=== PATIENT | female | born 1965 | race Caucasian/White ===

== ENCOUNTER 2019-06-15 11:45 | Emergency (ER) | payer SELFPAY ==
[~2019-06-15] VITALS: Ht 170.2 cm; Wt 68.0 kg
[2019-06-15 11:55] VITALS: BP 168/93
[2019-06-15] MEDS ORDERED: HYDROcodone/APAP 5/325MG 1 TAB TABLET PO ONE (12:30)
--- NOTE | 2019-06-15 12:39 | RAD ---
EXAM: Chest and left ribs, 3 views. HISTORY: Fall. COMPARISON: None. FINDINGS: A frontal view of the chest and 2 views left ribs are obtained. There is no infiltrate, pleural effusion or pneumothorax. The heart is normal in size. No displaced rib fracture is seen. There is mild lumbar scoliosis and degenerative change involving the mid lumbar levels. IMPRESSION: No acute pulmonary or osseous finding. Electronically signed by: Nena Reyes MD (06/15/2019 12:36 PM) [facility]
[2019-06-15] MEDS ORDERED: HYDR-2761 PO (12:51)
--- NOTE | 2019-06-15 12:52 | PHYS DOC ---
Past Medical History Past Medical History: COPD Past Surgical History: Other Additional Past Surgical Histo: Left ankle Additional Information: 1 PPD Since 1975 Alcohol Use: Occasionally Drug Use: Marijuana Adult General Chief Complaint Chief Complaint: RIB PAIN HPI HPI Patient is a 53 year old female, accompanied by her , who presents to the ER with complaints of left lower posterior rib pain and bruising after falling this morning at 0100. PT states she was in the bathroom when the rug slipped out under her and caused her to fall. She hit the left side of her body on the bathtub. She denies any head injury, neck pain, back pain, nausea, vomiting, or LOC. Pt states it hurts to take a deep breath, she denies shortness of breath or hemoptysis. Currently, her pain is a 5/10 on the pain scale. She took 3 naproxen at home prior to arrival for pain. Review of Systems Review of Systems Constitutional: Denies fever or chills [] Eyes: Denies change in visual acuity, redness, or eye pain [] HENT: Denies nasal congestion or sore throat [] Respiratory: Denies cough or shortness of breath; see hPI [] Cardiovascular: No additional information not addressed in HPI [] GI: Denies abdominal pain, nausea, vomiting, or diarrhea [] : Denies dysuria or hematuria [] Musculoskeletal: see HPI Integument: Denies rash; see HPI Neurologic: Denies headache Complete systems were reviewed and found to be within normal limits, except as documented in this note. Current Medications Current Medications Current Medications Medications (Trade) Dose Ordered Sig/Nav Start Time Stop Time Status Last Admin Dose Admin Acetaminophen/ Hydrocodone Bitart (Lortab 5/325) 1 tab 1X ONCE 06/15/19 12:30 06/15/19 12:31 DC 06/15/19 12:35 1 TAB Allergies Allergies Allergies Coded Allergies Type Severity Reaction Last Updated Verified No Known Drug Allergies 06/15/19 No Physical Exam Physical Exam Constitutional: Well developed, well nourished, no acute distress, non-toxic appearance. [] HENT: Normocephalic, atraumatic, bilateral external ears normal, oropharynx moist, no oral exudates, nose normal. [] Eyes: PERRLA, EOMI, conjunctiva normal, no discharge. [] Neck: Normal range of motion, no tenderness, supple, no stridor. [] Cardiovascular:Heart rate regular rhythm, no murmur [] Lungs & Thorax: Bilateral breath sounds clear to auscultation; left posterior ribs TTP, no crepitus, bruising noted to lateral lower ribs [] Skin: Warm, dry, no erythema, no rash. [] Back: no cervical, thoracic, or lumbar tenderness to palpation Extremities: No cyanosis, no clubbing, ROM intact, no edema. [] Neurologic: Alert and oriented X 3, no focal deficits noted. [] Psychologic: Affect normal, judgement normal, mood normal. [] Current Patient Data Vital Signs Vital Signs Date Time Temp Pulse Resp B/P (MAP) Pulse Ox O2 Delivery O2 Flow Rate FiO2 06/15/19 12:35 16 97 06/15/19 11:55 98.3 82 168/93 (118) Room Air 98.3 EKG EKG [] Radiology/Procedures Radiology/Procedures PROCEDURE: VENOUS LOWER EXT BILATERAL EXAM: Bilateral lower extremity venous Doppler sonogram. HISTORY: Pain and swelling. TECHNIQUE: Chatterjee scale and color Doppler sonographic evaluation of the bilateral lower extremity veins with spectral waveform analysis was performed. FINDINGS: There is normal color flow, normal compressibility and there are normal spectral waveforms in the common femoral, superficial femoral, and popliteal veins. The calf veins are not well seen due to patient body habitus and soft tissue edema. IMPRESSION: No Doppler evidence of lower extremity deep venous thrombosis, with limited evaluation of the calf veins due to body habitus and soft tissue edema. [] Course & Med Decision Making Course & Med Decision Making Pertinent Labs and Imaging studies reviewed. (See chart for details) [] Dragon Disclaimer Dragon Disclaimer This electronic medical record was generated, in whole or in part, using a voice recognition dictation system. Departure Departure Impression: Primary Impression: Contusion of rib on left side Disposition: HOME, SELF-CARE Condition: STABLE Patient Instructions: Rib Contusion Additional Instructions: Fill prescription and use as directed. Apply ice to sore areas for 10-15 minutes every hour today while awake then as needed. Take 2 deep breaths and cough while holding a pillow every hour. Follow up with your primary care doctor next week, return the ER if symptoms worsen. Scripts Hydrocodone Bit/Acetaminophen (HYDROCODONE-APAP 5-325 ) 1 Tab Tablet 1 TAB PO PRN Q6HRS PRN for PAIN for 3 Days, #10 TAB 0 Refills Prov: BRAYDON VILLEGAS COTTON FACTOR 06/15/19 Problem Qualifiers Primary Impression: Contusion of rib on left side Encounter type: initial encounter Qualified Codes: S20.212A - Contusion of left front wall of thorax, initial encounter BRAYDON VILLEGAS COTTON FACTOR Jun 15, 2019 12:52
== END 2019-06-15 12:54 | disposition home or self-care (01) ==
LOC: ER 11:45
DX: S20.212A Contusion of left front wall of thorax, initial encounter (principal); J44.9 Chronic obstructive pulmonary disease, unspecified; F17.200 Nicotine dependence, unspecified, uncomplicated; W18.09XA Striking against other object with subsequent fall, initial encounter; Y93.89 Activity, other specified; Y92.002 Bathroom of unspecified non-institutional (private) residence as the place of occurrence of the external cause; Y99.8 Other external cause status
CPT/HCPCS: 71101; 99284

== ENCOUNTER 2020-05-26 08:25 | Emergency (ER) | payer SELFPAY ==
[~2020-05-26] VITALS: Ht 162.6 cm; Wt 68.0 kg
[~2020-05-26 08:25] MED LIST: HYDR-2761 PO
--- NOTE | 2020-05-26 09:09 | PHYS DOC ---
Past Medical History Past Medical History: COPD, Hypertension Past Surgical History: Other Additional Past Surgical Histo: Left ankle Smoking Status: Current Every Day Smoker Alcohol Use: None Drug Use: Marijuana General Adult EDM: Chief Complaint: FEVER HPI: HPI: Patient is a 54 year old female who presented to ER with fever chills, nausea vomiting, abdominal pain on the right side. Patient says she still having right flank pain a week ago, associate with urinary frequency. Patient was thinking she had a bladder infection so she took some Azo at home but did not get any better. The pain become more severe last night so she came here for evaluation. 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 Patient denies any cough or congestion, no sore throat, no chest pain, no trouble breathing. Review of Systems: Review of Systems: Constitutional: Positive for fever and chill Eyes: Denies change in visual acuity. [] HENT: Denies nasal congestion or sore throat. [] Respiratory: Denies cough or shortness of breath. [] Cardiovascular: Denies chest pain or edema. [] GI: Positive for abdominal pain, associate with nausea and vomiting. : Positive for dysuria Musculoskeletal: Denies back pain or joint pain. [] Integument: Denies rash. [] Neurologic: Denies headache, focal weakness or sensory changes. [] Endocrine: Denies polyuria or polydipsia. [] Lymphatic: Denies swollen glands. [] Psychiatric: Denies depression or anxiety. [] Heart Score: Risk Factors: Risk Factors: DM, Current or recent (<one month) smoker, HTN, HLP, family history of CAD, obesity. Risk Scores: Score 0 - 3: 2.5% MACE over next 6 weeks - Discharge Home Score 4 - 6: 20.3% MACE over next 6 weeks - Admit for Clinical Observation Score 7 - 10: 72.7% MACE over next 6 weeks - Early Invasive Strategies Current Medications: Current Medications Medications (Trade) Dose Ordered Sig/Nav Start Time Stop Time Status Last Admin Dose Admin Ketorolac Tromethamine (Toradol 30mg Vial) 30 mg 1X ONCE 05/26/20 09:30 05/26/20 09:31 Ondansetron HCl (Zofran) 4 mg 1X ONCE 05/26/20 09:30 05/26/20 09:31 Sodium Chloride 1,000 ml @ 1,000 mls/hr 1X ONCE 05/26/20 09:30 05/26/20 10:29 Allergies: Allergies: Allergies Coded Allergies Type Severity Reaction Last Updated Verified No Known Drug Allergies 06/15/19 No Physical Exam: PE: Constitutional: Well developed, well nourished, no acute distress, non-toxic appearance. [] HENT: Normocephalic, atraumatic, bilateral external ears normal, oropharynx moist, no oral exudates, nose normal. [] Eyes: PERRLA, EOMI, conjunctiva normal, no discharge. [] Neck: Normal range of motion, no tenderness, supple, no stridor. [] Cardiovascular:Heart rate regular rhythm, no murmur [] Lungs & Thorax: Bilateral breath sounds clear to auscultation [] Abdomen: Bowel sounds normal, soft, there is tenderness to palpation of the right lower quadrant abdominal area, no rebound, no guarding., no masses, no pulsatile masses. [] Skin: Warm, dry, no erythema, no rash. [] Back: No tenderness, positive for right CVA tenderness to palpation Extremities: No tenderness, no cyanosis, no clubbing, ROM intact, no edema. [] Neurologic: Alert and oriented X 3, normal motor function, normal sensory function, no focal deficits noted. [] Psychologic: Affect normal, judgement normal, mood normal. [] Current Patient Data: Labs: Laboratory Tests Test 05/26/20 08:50 05/26/20 09:39 White Blood Count 10.5 x10^3/uL Red Blood Count 4.02 x10^6/uL Hemoglobin 13.4 g/dL Hematocrit 39.3 % Mean Corpuscular Volume 98 fL Mean Corpuscular Hemoglobin 33 pg Mean Corpuscular Hemoglobin Concent 34 g/dL Red Cell Distribution Width 13.5 % Platelet Count 156 x10^3/uL Neutrophils (%) (Auto) 91 % Lymphocytes (%) (Auto) 2 % Monocytes (%) (Auto) 7 % Eosinophils (%) (Auto) 0 % Basophils (%) (Auto) 0 % Neutrophils # (Auto) 9.5 x10^3/uL Lymphocytes # (Auto) 0.2 x10^3/uL Monocytes # (Auto) 0.7 x10^3/uL Eosinophils # (Auto) 0.0 x10^3/uL Basophils # (Auto) 0.0 x10^3/uL Segmented Neutrophils % 80 % Band Neutrophils % 8 % Lymphocytes % 3 % Monocytes % 8 % Eosinophils % 1 % Toxic Granulation Slight Dohle Bodies Few Platelet Estimate Adequate Prothrombin Time 12.4 SEC Prothromb Time International Ratio 1.0 Activated Partial Thromboplast Time 37 SEC Sodium Level 138 mmol/L Potassium Level 3.8 mmol/L Chloride Level 103 mmol/L Carbon Dioxide Level 25 mmol/L Anion Gap 10 Blood Urea Nitrogen 17 mg/dL Creatinine 1.4 mg/dL Estimated GFR (Cockcroft-Gault) 39.0 BUN/Creatinine Ratio 12 Glucose Level 107 mg/dL Lactic Acid Level 1.2 mmol/L Calcium Level 9.4 mg/dL Total Bilirubin 0.7 mg/dL Aspartate Amino Transf (AST/SGOT) 116 U/L Alanine Aminotransferase (ALT/SGPT) 113 U/L Alkaline Phosphatase 179 U/L Total Protein 7.4 g/dL Albumin 2.9 g/dL Albumin/Globulin Ratio 0.6 Lipase 64 U/L Urine Collection Type Unknown Urine Color Yellow Urine Clarity Clear Urine pH 7.0 Urine Specific Harrison 1.020 Urine Protein >=300 mg/dL Urine Glucose (UA) Negative mg/dL Urine Ketones (Stick) Trace mg/dL Urine Blood Moderate Urine Nitrite Negative Urine Bilirubin Negative Urine Urobilinogen Dipstick 4.0 mg/dL Urine Leukocyte Esterase Small Urine RBC 3-5 /HPF Urine WBC 20-40 /HPF Urine Squamous Epithelial Cells Mod /LPF Urine Bacteria Many /HPF Urine Mucus Mod /LPF Current Medications Medications (Trade) Dose Ordered Sig/Nav Route PRN Reason Start Time Stop Time Status Last Admin Dose Admin Sodium Chloride 1,000 ml @ 1,000 mls/hr 1X ONCE IV 05/26/20 09:30 05/26/20 10:29 DC 05/26/20 09:23 Ondansetron HCl (Zofran) 4 mg 1X ONCE IVP 05/26/20 09:30 05/26/20 09:31 DC 05/26/20 09:22 Ketorolac Tromethamine (Toradol 30mg Vial) 30 mg 1X ONCE IVP 05/26/20 09:30 05/26/20 09:31 DC 05/26/20 09:25 Piperacillin Sod/ Tazobactam Sod 3.375 gm/Sodium Chloride 50 ml @ 100 mls/hr 1X ONCE IV 05/26/20 11:00 05/26/20 11:29 DC 05/26/20 10:57 Morphine Sulfate (Morphine Sulfate) 4 mg 1X ONCE IV 05/26/20 11:15 05/26/20 11:16 DC 05/26/20 11:13 Iohexol (Omnipaque 300 Mg/ml) 60 ml 1X ONCE IV 05/26/20 11:15 05/26/20 11:16 DC 05/26/20 11:34 Info (CONTRAST GIVEN -- Rx MONITORING) 1 each PRN DAILY PRN MC SEE COMMENTS 05/26/20 11:30 05/28/20 11:29 Vital Signs: Vital Signs Date Time Temp Pulse Resp B/P (MAP) Pulse Ox O2 Delivery O2 Flow Rate FiO2 05/26/20 08:35 100.1 99 20 169/93 (118) 99 Room Air 100.1 EKG: EKG: [] Radiology/Procedures: Radiology/Procedures: [facility] [address] [place] [address] IMAGING REPORT Signed PATIENT: ANA LUISA VANESSA ACCOUNT: [id number] : 1965 LOCATION: ER AGE: 54 SEX: F EXAM STATUS: REG ER ORD. PHYSICIAN: ROXANA RAMOS DO REASON: right side abdominal pain PROCEDURE: CT ABD PELV W/ IV CONTRST ONLY Examination: CT abdomen pelvis with IV contrast HISTORY: History of right-sided abdominal pain COMPARISON: None available TECHNIQUE: Axial CT images of the abdomen pelvis were performed with IV contrast. Coronal and sagittal images also performed. Exposure: One or more of the following individualized dose reduction techniques were utilized for this examination: 1. Automated exposure control 2. Adjustment of the mA and/or kV according to patient size 3. Use of iterative reconstruction technique FINDINGS: Minimal bibasilar lung atelectasis. No evidence of free air identified in the abdomen. The liver, spleen, adrenals grossly appears unremarkable. The gallbladder is mildly distended. The stomach is mildly distended. The visualized pancreas grossly appears unremarkable. The small bowel is nondilated. Feces and gas noted in the colon. Sigmoid colon diverticulosis. Heterogeneous enhancement of the right kidney with inflammatory fat stranding identified about the right kidney and along the right ureter. Urinary bladder is mildly distended. Mild fat stranding identified about the urinary bladder. Atherosclerotic calcifications identified in the iliac arteries which limits evaluation of the ureters for evaluation of ureteral calculus. Moderate degenerative changes lumbar spine. IMPRESSION: 1. Heterogeneous enhancement of the right kidney with surrounding inflammatory fat stranding about the right kidney and along the right ureter , suspicious for pyelonephritis. There is mild fat stranding identified about the urinary bladder could be secondary to cystitis. Correlate with urine analysis. 2. Sigmoid colon diverticulosis. Electronically signed by: Juan Wang MD (05/26/2020 12:29 PM) [id number] DICTATED and SIGNED BY: JUAN WANG MD DATE: 05/26/20 1226 [facility] [address] [place] [address] IMAGING REPORT Signed PATIENT: ANA LUISA VANESSA ACCOUNT: [id number] : 1965 LOCATION: ER AGE: 54 SEX: F EXAM STATUS: REG ER ORD. PHYSICIAN: ROXANA RAMOS DO REASON: RUQ ABDOMINAL PAIN PROCEDURE: ABDOMEN LTD Examination: Ultrasound abdomen limited HISTORY: History of right upper quadrant abdominal pain COMPARISON: None available. Findings: The liver length measures 16.2 cm. The common bile duct measures 1.7 mm in transverse dimension. The gallbladder wall thickness measures 1.7 mm. The evaluation of the gallbladder is somewhat limited due to bowel gas. The right kidney measures 11.8 cm in length. The pancreas, aorta, IVC are not well-visualized due to bowel gas. IMPRESSION: 1. Limited examination due to bowel gas. 2. Unremarkable visualized exam. Electronically signed by: Juan Wang MD (05/26/2020 10:55 AM) [id number] DICTATED and SIGNED BY: JUAN WANG MD DATE: 05/26/20 1053 Course & Med Decision Making: Course & Med Decision Making Pertinent Labs and Imaging studies reviewed. (See chart for details) Patient is a 54-year-old female who was evaluated in the ER due to right side abdominal pain, work-up included lab and CT scan, ultrasound showed she had acute pyelonephritis. Patient was given IV fluid and antibiotic in the ER, she felt much better. Patient wanted to go home. Patient will be discharged home with levaquin. [place] Disclaimer: Oz Disclaimer: This electronic medical record was generated, in whole or in part, using a voice recognition dictation system. Departure Departure Impression: Primary Impression: Acute pyelonephritis Disposition: HOME, SELF-CARE Condition: IMPROVED Referrals: NO PCP (PCP) FOLLOW UP WITH YOUR FAMILY PHYSICIAN THIS WEEK FOR REEVALUATION Patient Instructions: Pyelonephritis, Adult Additional Instructions: Thank you for visiting our Emergency Department. We appreciate you trusting us with your care. If any additional problems come up don't hesitate to return to visit us. Please follow up with your primary care provider so they can plan additional care if needed and know about the problem that you had. If symptoms worsen come back to the Emergency Department. Any concerning symptoms that start such as chest pain, shortness of air, weakness or numbness on one side of the body, running high fevers or any other concerning symptoms return to the ER. During today ER visits, your liver function test was elevated, you need to follow-up with your family doctor to have your liver function RECHECKED NEXT WEEK. Scripts Levofloxacin (LEVOFLOXACIN) 750 Mg Tablet 1 TAB PO DAILY for 7 Days, #7 TAB Prov: ROXANA RAMOS DO 05/26/20 Justicifation of Admission Dx: Justifications for Admission: Justification of Admission Dx: N/A ROXANA RAMOS DO May 26, 2020 09:08
[2020-05-26 09:12] LABS: BASO % 0 % (0-3); EOS % 0 % (0-3); HEMATOCRIT 39.3 % (36.0-47.0); HEMOGLOBIN 13.4 g/dL (12.0-15.5); LYMPH # 0.2 x10^3/uL (1.0-4.8); LYMPH % 2 % (24-48); MEAN CORPUSCULAR HEMOGLOBIN 33 pg (25-35); MEAN CORPUSCULAR HGB CONC 34 g/dL (31-37); MEAN CORPUSCULAR VOLUME 98 fL (79-100); MONO # 0.7 x10^3/uL (0.0-1.1); MONO % 7 % (0-9); NEUT # 9.5 x10^3/uL (1.8-7.7); NEUT % 91 % (31-73); PLATELET COUNT 156 x10^3/uL (140-400); RED BLOOD COUNT 4.02 x10^6/uL (3.50-5.40); RED CELL DISTRIBUTION WIDTH 13.5 % (11.5-14.5); WHITE BLOOD COUNT 10.5 x10^3/uL (4.0-11.0)
[2020-05-26 09:19] LABS: CALCIUM 9.4 mg/dL (8.5-10.1); CREATININE 1.4 mg/dL (0.6-1.0); POTASSIUM 3.8 mmol/L (3.5-5.1)
[2020-05-26 09:21] LABS: PROTHROMBIN TIME PATIENT 12.4 SEC (11.7-14.0)
[2020-05-26 09:25] LABS: ALBUMIN 2.9 g/dL (3.4-5.0); ALBUMIN/GLOBULIN RATIO 0.6 (1.0-1.7); TOTAL BILIRUBIN 0.7 mg/dL (0.2-1.0); TOTAL PROTEIN 7.4 g/dL (6.4-8.2)
[2020-05-26] MEDS ORDERED: KETOROLAC 30 MG/ML VIAL. IVP ONE (09:30)
[2020-05-26] MEDS ORDERED: IV NORMAL SALINE 1000ML BAG 1,000 ML IV ONE (09:30)
[2020-05-26] MEDS ORDERED: ONDANSETRON PF 4 MG/2 ML VIAL. IVP ONE (09:30)
[2020-05-26 09:53] LABS: BILIRUBIN,URINE NEGATIVE (NEG); CLARITY,URINE CLEAR; COLOR,URINE YELLOW; NITRITE,URINE NEGATIVE (NEG); PROTEIN,URINE >=300 mg/dL (NEG-TRACE)
[2020-05-26 09:55] LABS: % BANDS 8 % (0-9); % EOS 1 % (0-5); % LYMPHS 3 % (24-48); % MONOS 8 % (0-10); % SEGS 80 % (35-66); PLT ESTIMATE ADEQUATE (ADEQUATE); TOXIC GRANULATION SLIGHT
[2020-05-26 10:04] LABS: BACTERIA,URINE MANY /HPF (0-FEW); WBC,URINE 20-40 /HPF (0-4)
[2020-05-26 10:05] LABS: SQUAMOUS EPITHELIAL CELL,UR MOD /LPF
--- NOTE | 2020-05-26 10:58 | RAD ---
Examination: Ultrasound abdomen limited HISTORY: History of right upper quadrant abdominal pain COMPARISON: None available. Findings: The liver length measures 16.2 cm. The common bile duct measures 1.7 mm in transverse dimension. The gallbladder wall thickness measures 1.7 mm. The evaluation of the gallbladder is somewhat limited due to bowel gas. The right kidney measures 11.8 cm in length. The pancreas, aorta, IVC are not well-visualized due to bowel gas. IMPRESSION: 1. Limited examination due to bowel gas. 2. Unremarkable visualized exam. Electronically signed by: Juan Wang MD (05/26/2020 10:55 AM) [id number]
[2020-05-26] MEDS ORDERED: PIPERACILLIN/TAZOBACTAM 3.375 GM in IV NORMAL SALINE 50ML 50 ML IV ONE (11:00)
[2020-05-26] MEDS ORDERED: MORPHINE SULFATE 4 MG/ML VIAL. IV ONE (11:15)
[2020-05-26] MEDS ORDERED: IOHEXOL 300 MG/ML 100ML VIAL. IV ONE (11:15)
[2020-05-26] MEDS ORDERED: CONTRAST GIVEN. MC PRN (11:30)
--- NOTE | 2020-05-26 12:32 | RAD ---
Examination: CT abdomen pelvis with IV contrast HISTORY: History of right-sided abdominal pain COMPARISON: None available TECHNIQUE: Axial CT images of the abdomen pelvis were performed with IV contrast. Coronal and sagittal images also performed. Exposure: One or more of the following individualized dose reduction techniques were utilized for this examination: 1. Automated exposure control 2. Adjustment of the mA and/or kV according to patient size 3. Use of iterative reconstruction technique FINDINGS: Minimal bibasilar lung atelectasis. No evidence of free air identified in the abdomen. The liver, spleen, adrenals grossly appears unremarkable. The gallbladder is mildly distended. The stomach is mildly distended. The visualized pancreas grossly appears unremarkable. The small bowel is nondilated. Feces and gas noted in the colon. Sigmoid colon diverticulosis. Heterogeneous enhancement of the right kidney with inflammatory fat stranding identified about the right kidney and along the right ureter. Urinary bladder is mildly distended. Mild fat stranding identified about the urinary bladder. Atherosclerotic calcifications identified in the iliac arteries which limits evaluation of the ureters for evaluation of ureteral calculus. Moderate degenerative changes lumbar spine. IMPRESSION: 1. Heterogeneous enhancement of the right kidney with surrounding inflammatory fat stranding about the right kidney and along the right ureter , suspicious for pyelonephritis. There is mild fat stranding identified about the urinary bladder could be secondary to cystitis. Correlate with urine analysis. 2. Sigmoid colon diverticulosis. Electronically signed by: Juan Wang MD (05/26/2020 12:29 PM) [id number]
[2020-05-26 12:42] VITALS: BP 137/78
[2020-05-26] MEDS ORDERED: LEVO750T5 PO (12:50)
--- NOTE | 2020-05-26 14:53 | EKG ---
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
[2020-05-27] MEDS ORDERED: ZOLP5TAB PO (22:53)
[2020-05-27] MEDS ORDERED: MAG-115 PO (22:53)
[2020-05-27] MEDS ORDERED: NICO1PAT21 TP (22:53)
[2020-05-27] MEDS ORDERED: HYDR-2767 PO (22:53)
== END 2020-05-26 13:05 | disposition home or self-care (01) ==
LOC: ER 08:25
DX: N10 Acute pyelonephritis (principal); Z20.828 Contact with and (suspected) exposure to other viral communicable diseases; R11.2 Nausea with vomiting, unspecified; R50.9 Fever, unspecified; R10.31 Right lower quadrant pain; J44.9 Chronic obstructive pulmonary disease, unspecified; I10 Essential (primary) hypertension; F17.200 Nicotine dependence, unspecified, uncomplicated; F12.90 Cannabis use, unspecified, uncomplicated; Z98.890 Other specified postprocedural states
CPT/HCPCS: 36415; 74177; 76705; 80053; 81001; 83605; 83690; 85007; 85025; 85610; 85730; 87040; 87086; 87205; 93005; 96361; 96365; 96375; 99285; J1885; J2270; J2405; J2543; J7030; Q9967; U0003

== ENCOUNTER 2020-05-27 18:59 | Inpatient (IN) | payer SELFPAY ==
[~2020-05-27] VITALS: Ht 162.6 cm; Wt 72.5 kg
[~2020-05-27 18:59] MED LIST changes: +LEVO750T5 PO
[2020-05-27 19:42] LABS: BILIRUBIN,URINE NEGATIVE (NEG); CLARITY,URINE CLEAR; COLOR,URINE YELLOW; NITRITE,URINE NEGATIVE (NEG); PROTEIN,URINE 100 mg/dL (NEG-TRACE)
[2020-05-27 19:46] LABS: BASO % 0 % (0-3); EOS # 0.1 x10^3/uL (0.0-0.7); EOS % 1 % (0-3); HEMOGLOBIN 13.1 g/dL (12.0-15.5); LYMPH # 0.5 x10^3/uL (1.0-4.8); LYMPH % 6 % (24-48); MEAN CORPUSCULAR HEMOGLOBIN 33 pg (25-35); MEAN CORPUSCULAR HGB CONC 34 g/dL (31-37); MEAN CORPUSCULAR VOLUME 95 fL (79-100); MONO # 0.9 x10^3/uL (0.0-1.1); MONO % 11 % (0-9); NEUT # 6.5 x10^3/uL (1.8-7.7); NEUT % 82 % (31-73); PLATELET COUNT 157 x10^3/uL (140-400); RED BLOOD COUNT 3.98 x10^6/uL (3.50-5.40); RED CELL DISTRIBUTION WIDTH 13.7 % (11.5-14.5); WHITE BLOOD COUNT 7.9 x10^3/uL (4.0-11.0)
[2020-05-27 19:47] LABS: SQUAMOUS EPITHELIAL CELL,UR MANY /LPF
[2020-05-27 19:48] LABS: BACTERIA,URINE FEW /HPF (0-FEW); RBC,URINE 20-40 /HPF (0-2)
[2020-05-27 19:56] LABS: CALCIUM 9.5 mg/dL (8.5-10.1); CREATININE 1.6 mg/dL (0.6-1.0); GFR 33.5; POTASSIUM 3.6 mmol/L (3.5-5.1)
[2020-05-27 20:02] LABS: ALBUMIN 2.6 g/dL (3.4-5.0); ALBUMIN/GLOBULIN RATIO 0.6 (1.0-1.7); TOTAL BILIRUBIN 0.7 mg/dL (0.2-1.0)
--- NOTE | 2020-05-27 20:21 | PHYS DOC ---
Past Medical History Past Medical History: COPD, Hypertension Past Surgical History: Other Additional Past Surgical Histo: Left ankle Smoking Status: Current Every Day Smoker Alcohol Use: None Drug Use: Marijuana General Adult EDM: Chief Complaint: FLANK PAIN HPI: HPI: Patient is a 54 year old female presents for reevaluation after positive blood cultures growing gram-positive rods in 4 out of 4 bottles. Patient seen in the ER yesterday she states she was diagnosed with a kidney infection. Patient states she was treated with pain medicines IV fluids antibiotics and then discharged home on Levaquin. Patient states she has taken 2 doses of Levaquin since discharge. Patient states since Monday she has had fever and chills T-max of 103.4. Patient states today she had a fever of 100.5. Patient states she has discomfort suprapubic into her right flank. Review of Systems: Review of Systems: Review of systems: Constitutional symptoms-positive fever, Eyes- No Discharge, No Visual Loss Respiratory symptoms- No shortness of breath, No wheezing, No Dyspnea on Exertion Cardiovascular Systems; No chest pain, No Palpitations, No syncope Gastrointestinal symptoms: Positive abdominal pain no vomiting no diarrhea Genitourinary symptoms: Positive flank pain Musculoskeletal symptoms: Positive back pain No extremity pain. NEUROLOGICAL Symptoms: No headache, no generalized weakness; No focal Weakness Heart Score: Risk Factors: Risk Factors: DM, Current or recent (<one month) smoker, HTN, HLP, family history of CAD, obesity. Risk Scores: Score 0 - 3: 2.5% MACE over next 6 weeks - Discharge Home Score 4 - 6: 20.3% MACE over next 6 weeks - Admit for Clinical Observation Score 7 - 10: 72.7% MACE over next 6 weeks - Early Invasive Strategies Allergies: Allergies: Allergies Coded Allergies Type Severity Reaction Last Updated Verified No Known Drug Allergies 06/15/19 No Physical Exam: PE: General: alert, no acute distress. Skin: warm, dry and intact. Head:: Normocephalic, atraumatic. Neck: Trachea midline. Eyes: EOMI, Normal conjunctiva, No drainage CARDIOVASCULAR: Regular rate and rhythm RESPIRATORY: No respiratory distress Back: Full range of motion. MUSCULOSKELETAL: Full range of motion of bilateral upper and lower extremities. GASTROINTESTINAL: Abdomen soft without rebound or guarding. NEUROLOGICAL: Alert and noted to person, place and time. No neurological deficits observed Psychiatric: Cooperative. Normal judgment Current Patient Data: Labs: Laboratory Tests Test 05/27/20 19:11 05/27/20 19:35 Urine Collection Type Unknown Urine Color Yellow Urine Clarity Clear Urine pH 6.0 (<5.0-8.0) Urine Specific [place] 1.015 (1.000-1.030) Urine Protein 100 mg/dL (NEG-TRACE) Urine Glucose (UA) Negative mg/dL (NEG) Urine Ketones (Stick) 15 mg/dL (NEG) Urine Blood Large (NEG) Urine Nitrite Negative (NEG) Urine Bilirubin Negative (NEG) Urine Urobilinogen Dipstick 1.0 mg/dL (0.2 mg/dL) Urine Leukocyte Esterase Trace (NEG) Urine RBC 20-40 /HPF (0-2) Urine WBC 11-20 /HPF (0-4) Urine Squamous Epithelial Cells Many /LPF Urine Bacteria Few /HPF (0-FEW) Urine Mucus Slight /LPF White Blood Count 7.9 x10^3/uL (4.0-11.0) Red Blood Count 3.98 x10^6/uL (3.50-5.40) Hemoglobin 13.1 g/dL (12.0-15.5) Hematocrit 38.0 % (36.0-47.0) Mean Corpuscular Volume 95 fL (79-100) Mean Corpuscular Hemoglobin 33 pg (25-35) Mean Corpuscular Hemoglobin Concent 34 g/dL (31-37) Red Cell Distribution Width 13.7 % (11.5-14.5) Platelet Count 157 x10^3/uL (140-400) Neutrophils (%) (Auto) 82 % (31-73) H Lymphocytes (%) (Auto) 6 % (24-48) L Monocytes (%) (Auto) 11 % (0-9) H Eosinophils (%) (Auto) 1 % (0-3) Basophils (%) (Auto) 0 % (0-3) Neutrophils # (Auto) 6.5 x10^3/uL (1.8-7.7) Lymphocytes # (Auto) 0.5 x10^3/uL (1.0-4.8) L Monocytes # (Auto) 0.9 x10^3/uL (0.0-1.1) Eosinophils # (Auto) 0.1 x10^3/uL (0.0-0.7) Basophils # (Auto) 0.0 x10^3/uL (0.0-0.2) Sodium Level 136 mmol/L (136-145) Potassium Level 3.6 mmol/L (3.5-5.1) Chloride Level 102 mmol/L (98-107) Carbon Dioxide Level 22 mmol/L (21-32) Anion Gap 12 (6-14) Blood Urea Nitrogen 20 mg/dL (7-20) Creatinine 1.6 mg/dL (0.6-1.0) H Estimated GFR (Cockcroft-Gault) 33.5 BUN/Creatinine Ratio 13 (6-20) Glucose Level 92 mg/dL (70-99) Calcium Level 9.5 mg/dL (8.5-10.1) Total Bilirubin 0.7 mg/dL (0.2-1.0) Aspartate Amino Transferase (AST) 64 U/L (15-37) H Alanine Aminotransferase (ALT) 84 U/L (14-59) H Alkaline Phosphatase 205 U/L (46-116) H Total Protein 7.0 g/dL (6.4-8.2) Albumin 2.6 g/dL (3.4-5.0) L Albumin/Globulin Ratio 0.6 (1.0-1.7) L Laboratory Tests 05/27/20 19:35 Laboratory Tests 05/27/20 19:35 Vital Signs: Vital Signs Date Time Temp Pulse Resp B/P (MAP) Pulse Ox O2 Delivery O2 Flow Rate FiO2 05/27/20 19:19 97.7 92 20 167/89 (115) 97 Room Air 97.7 EKG: EKG: [] Radiology/Procedures: Radiology/Procedures: [] Course & Med Decision Making: Course & Med Decision Making Pertinent Labs and Imaging studies reviewed. (See chart for details) []Patient treated with Morphine for pain. Dosed with Zosyn. Admitted to hospitalist with ID consult. Oz Disclaimer: Oz Disclaimer: This electronic medical record was generated, in whole or in part, using a voice recognition dictation system. Departure Departure Impression: Primary Impression: Flank pain Additional Impressions: Fever Pyelonephritis Positive blood culture Disposition: ADMITTED INPATIENT Admitting Physician: [facility] Referrals: NO PCP (PCP) Justicifation of Admission Dx: Justifications for Admission: Justification of Admission Dx: N/A EDDIE HERRERA DO May 27, 2020 20:21
[2020-05-27] MEDS ORDERED: MORPHINE SULFATE 2 MG/ML VIAL. IV ONE (20:30)
[2020-05-27] MEDS ORDERED: ACETAMINOPHEN 325 MG TABLET. PO PRN (21:00)
[2020-05-27] MEDS ORDERED: ONDANSETRON PF 4 MG/2 ML VIAL. IV PRN (21:00)
[2020-05-27] MEDS ORDERED: MORPHINE SULFATE 4 MG/ML VIAL. IV PRN (21:00)
[2020-05-27] MEDS ORDERED: PIPERACILLIN/TAZOBACTAM 4.5 GM in IV NORMAL SALINE 100ML 100 ML IV ONE (21:00)
--- NOTE | 2020-05-27 22:13 | NUR ---
The patient, ANA LUISA VANESSA, 54 y/o, F admitted by VIANEY REYES MD, was given written information regarding hospital policies, unit procedures and contact persons. Valuables were checked and left with her.
[2020-05-27] MEDS ORDERED: HYDR-2767 PO (22:53)
[2020-05-27] MEDS ORDERED: ZOLP5TAB PO (22:53)
[2020-05-27] MEDS ORDERED: MAG-115 PO (22:53)
[2020-05-27] MEDS ORDERED: NICO1PAT21 TP (22:53)
[2020-05-27 23:00] VITALS: BP 140/85
[2020-05-27] MEDS: HYDROcodone/APAP 10/325 1 TAB TABLET PO PRN (23:28)
[2020-05-27] MEDS: ZOLPIDEM 5 MG TABLET. PO PRN (23:28)
[2020-05-28] MEDS ORDERED: MAG HYDROX/ALUMINUM HYD/SIMETH 30 ML ORAL.SUSP PO PRN (01:00)
[2020-05-28 03:00] VITALS: BP 165/85
[2020-05-28] MEDS: HYDROcodone/APAP 10/325 1 TAB TABLET PO PRN ×4 (03:39→17:58)
[2020-05-28 07:05] VITALS: BP 147/83
--- NOTE | 2020-05-28 08:15 | PDOC1 ---
History and Physical Date of Service: DOS: DATE: 05/28/20 TIME: 08:11 Chief Complaint: Chief Complain: Right flank pain History of Present Illness: HPI: Patient is a 54-year-old female with past medical history of COPD, hypertension, recurrent UTIs in the past who returns to the ED after being treated with Levaquin for a UTI. She returns peak and her blood cultures did show gram- negative rods. Patient states that she had fevers and chills with a T-max of 103.4. Patient continues to have moderate right flank pain that is causing her discomfort that radiates to her suprapubic area. Positive CVA tenderness. Denies shortness of breath, chest pain, abdominal pain, bloody stools, diarrhea, or dizziness. 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 She does not do very well with scheduling or planning her voiding schedules. Past Medical/Surgical History: PMH/PSH: Past Medical History: COPD, Hypertension Past Surgical Histo: Left ankle Allergies: Allergies: Coded Allergies: No Known Drug Allergies (Unverified , 06/15/19) Family History: Family History: Reviewed and none reported Social History: Social History: Smoking Status: Current Every Day Smoker Alcohol Use: None Drug Use: Marijuana Current Medications: Current Medications Current Medications Morphine Sulfate (Morphine Sulfate) 2 mg 1X ONCE IV Last administered on 05/27/20at 20:39; Start 05/27/20 at 20:30; Stop 05/27/20 at 20:31; Status DC Piperacillin Sod/ Tazobactam Sod 4.5 gm/Sodium Chloride 100 ml @ 200 mls/hr 1X ONCE IV Last administered on 05/27/20at 21:05; Start 05/27/20 at 21:00; Stop 05/27/20 at 21:29; Status DC Ondansetron HCl (Zofran) 4 mg PRN Q8HRS PRN IV NAUSEA/VOMITING; Start 05/27/20 at 21:00; Stop 05/28/20 at 20:59 Morphine Sulfate (Morphine Sulfate) 4 mg PRN Q2HR PRN IV PAIN; Start 05/27/20 at 21:00; Stop 05/28/20 at 20:59 Acetaminophen (Tylenol) 650 mg PRN Q4HRS PRN PO FEVER > 100.3'F; Start 05/27/20 at 21:00; Stop 05/28/20 at 20:59 Al Hydroxide/Mg Hydroxide (Mylanta Plus Xs) 30 ml BID PO ; Start 05/28/20 at 09:00; Stop 05/28/20 at 01:02; Status DC Nicotine (Nicoderm Cq 21mg) 1 patch DAILY TD ; Start 05/28/20 at 09:00 Zolpidem Tartrate (Ambien) 5 mg PRN QHS PRN PO INSOMNIA Last administered on 05/27/20at 23:28; Start 05/27/20 at 23:15 Acetaminophen/ Hydrocodone Bitart (Lortab 10/325) 1 tab PRN Q4HRS PRN PO SEVERE PAIN 7-10 Last administered on 05/28/20at 03:39; Start 05/27/20 at 23:15 Al Hydroxide/Mg Hydroxide (Mylanta Plus Xs) 30 ml PRN BID PRN PO GAS / BLOATING Last administered on 05/28/20at 01:12; Start 05/28/20 at 01:00 Cefepime HCl (Maxipime) 2 gm Q12HR IVP ; Start 05/28/20 at 08:00 Active Scripts Active Levofloxacin 750 Mg Tablet 1 Tab PO DAILY 7 Days Reported NICODERM CQ 21mg (Nicotine) 1 Each Patch.td24 1 Patch TP DAILY Mylanta Maximum Strength Liq (Mag Hydrox/Aluminum Hyd/Simeth) 355 Ml Oral.susp 355 Ml PO BID Ambien (Zolpidem Tartrate) 5 Mg Tablet 5 Mg PO PRN QHS PRN Hydrocodone-Acetamin 10-325 mg (Hydrocodone/Acetaminophen) 1 Each Tablet 1 Each PO Q6HRS ROS: Review of Systems Review of System REVIEW OF SYSTEMS: GENERAL: Denies weakness SKIN: No bruising, hair changes or rashes. EYES: No blurred, double or loss of vision. NOSE AND THROAT: No history of nosebleeds, hoarseness or sore throat. HEART: No history of palpitations, chest pain or shortness of breath on exertion. LUNGS: Denies cough, hemoptysis, wheezing or shortness of breath. GASTROINTESTINAL: Denies changes in appetite, nausea, vomiting, diarrhea or constipation. GENITOURINARY: No history of frequency, urgency, hesitancy or nocturia. NEUROLOGIC: Denies history of numbness, tingling, or tremor. PSYCHIATRIC: No history of panic, anxiety or depression. ENDOCRINE: No history of heat or cold intolerance, polyuria or polydipsia. EXTREMITIES: Denies joint pain, pain on walking or stiffness. Physical Exam: Vital Signs: Vital Signs Date Time Temp Pulse Resp B/P (MAP) Pulse Ox O2 Delivery O2 Flow Rate FiO2 05/28/20 07:05 98.4 79 20 147/83 (104) 95 Room Air 98.4 Physcial Exam: GEN: No apparent distress. Alert and oriented HEENT: Normal cephalic, atraumatic, external auditory canals are patent EYES: Extraocular muscles are intact, pupil are equally round and reactive to light and accommodation MUSCULOSKELETAL: Well developed , well nourished, good range of motion ENDOCRINE: No thyromegaly was palpated LYMPHATICS: No cervical chain or axillary nodes were noted HEMATOPOIETIC: No bruising NECK: Supple, no JVD, no thyromegaly was noted LUNGS: Clear to auscultation in all lung oliva without rhonchi or wheezing HEART: RRR, S!, S2 present. Peripheral pulses intact, no obvious murmurs noted ABDOMEN: Soft, nontender. Positive bowel sounds, no organomegaly, normal bowel sounds EXTREMITIES: Without clubbing, cyanosis, or edema. Pedal pulses intact. Negative Homans sign NEUROLOGIC: Normal speech and tone. A&O x 3, moves all extremities, no obvious focal deficits PSYCHIATRIC: Normal affect, normal mood. Stable SKIN: No ulcerations or rashes, good skin turgor, no jaundice VASCULAR: Good capillary refill, neurovascular bundle appears to be intact Labs: Labs: Laboratory Tests Test 05/27/20 19:11 05/27/20 19:35 Urine Collection Type Unknown Urine Color Yellow Urine Clarity Clear Urine pH 6.0 (<5.0-8.0) Urine Specific [place] 1.015 (1.000-1.030) Urine Protein 100 mg/dL (NEG-TRACE) Urine Glucose (UA) Negative mg/dL (NEG) Urine Ketones (Stick) 15 mg/dL (NEG) Urine Blood Large (NEG) Urine Nitrite Negative (NEG) Urine Bilirubin Negative (NEG) Urine Urobilinogen Dipstick 1.0 mg/dL (0.2 mg/dL) Urine Leukocyte Esterase Trace (NEG) Urine RBC 20-40 /HPF (0-2) Urine WBC 11-20 /HPF (0-4) Urine Squamous Epithelial Cells Many /LPF Urine Bacteria Few /HPF (0-FEW) Urine Mucus Slight /LPF White Blood Count 7.9 x10^3/uL (4.0-11.0) Red Blood Count 3.98 x10^6/uL (3.50-5.40) Hemoglobin 13.1 g/dL (12.0-15.5) Hematocrit 38.0 % (36.0-47.0) Mean Corpuscular Volume 95 fL (79-100) Mean Corpuscular Hemoglobin 33 pg (25-35) Mean Corpuscular Hemoglobin Concent 34 g/dL (31-37) Red Cell Distribution Width 13.7 % (11.5-14.5) Platelet Count 157 x10^3/uL (140-400) Neutrophils (%) (Auto) 82 % (31-73) Lymphocytes (%) (Auto) 6 % (24-48) Monocytes (%) (Auto) 11 % (0-9) Eosinophils (%) (Auto) 1 % (0-3) Basophils (%) (Auto) 0 % (0-3) Neutrophils # (Auto) 6.5 x10^3/uL (1.8-7.7) Lymphocytes # (Auto) 0.5 x10^3/uL (1.0-4.8) Monocytes # (Auto) 0.9 x10^3/uL (0.0-1.1) Eosinophils # (Auto) 0.1 x10^3/uL (0.0-0.7) Basophils # (Auto) 0.0 x10^3/uL (0.0-0.2) Sodium Level 136 mmol/L (136-145) Potassium Level 3.6 mmol/L (3.5-5.1) Chloride Level 102 mmol/L (98-107) Carbon Dioxide Level 22 mmol/L (21-32) Anion Gap 12 (6-14) Blood Urea Nitrogen 20 mg/dL (7-20) Creatinine 1.6 mg/dL (0.6-1.0) Estimated GFR (Cockcroft-Gault) 33.5 BUN/Creatinine Ratio 13 (6-20) Glucose Level 92 mg/dL (70-99) Calcium Level 9.5 mg/dL (8.5-10.1) Total Bilirubin 0.7 mg/dL (0.2-1.0) Aspartate Amino Transf (AST/SGOT) 64 U/L (15-37) Alanine Aminotransferase (ALT/SGPT) 84 U/L (14-59) Alkaline Phosphatase 205 U/L (46-116) Total Protein 7.0 g/dL (6.4-8.2) Albumin 2.6 g/dL (3.4-5.0) Albumin/Globulin Ratio 0.6 (1.0-1.7) Laboratory Tests Test 05/27/20 19:11 05/27/20 19:35 Urine Collection Type Unknown Urine Color Yellow Urine Clarity Clear Urine pH 6.0 (<5.0-8.0) Urine Specific [place] 1.015 (1.000-1.030) Urine Protein 100 mg/dL (NEG-TRACE) Urine Glucose (UA) Negative mg/dL (NEG) Urine Ketones (Stick) 15 mg/dL (NEG) Urine Blood Large (NEG) Urine Nitrite Negative (NEG) Urine Bilirubin Negative (NEG) Urine Urobilinogen Dipstick 1.0 mg/dL (0.2 mg/dL) Urine Leukocyte Esterase Trace (NEG) Urine RBC 20-40 /HPF (0-2) Urine WBC 11-20 /HPF (0-4) Urine Squamous Epithelial Cells Many /LPF Urine Bacteria Few /HPF (0-FEW) Urine Mucus Slight /LPF White Blood Count 7.9 x10^3/uL (4.0-11.0) Red Blood Count 3.98 x10^6/uL (3.50-5.40) Hemoglobin 13.1 g/dL (12.0-15.5) Hematocrit 38.0 % (36.0-47.0) Mean Corpuscular Volume 95 fL (79-100) Mean Corpuscular Hemoglobin 33 pg (25-35) Mean Corpuscular Hemoglobin Concent 34 g/dL (31-37) Red Cell Distribution Width 13.7 % (11.5-14.5) Platelet Count 157 x10^3/uL (140-400) Neutrophils (%) (Auto) 82 % (31-73) Lymphocytes (%) (Auto) 6 % (24-48) Monocytes (%) (Auto) 11 % (0-9) Eosinophils (%) (Auto) 1 % (0-3) Basophils (%) (Auto) 0 % (0-3) Neutrophils # (Auto) 6.5 x10^3/uL (1.8-7.7) Lymphocytes # (Auto) 0.5 x10^3/uL (1.0-4.8) Monocytes # (Auto) 0.9 x10^3/uL (0.0-1.1) Eosinophils # (Auto) 0.1 x10^3/uL (0.0-0.7) Basophils # (Auto) 0.0 x10^3/uL (0.0-0.2) Sodium Level 136 mmol/L (136-145) Potassium Level 3.6 mmol/L (3.5-5.1) Chloride Level 102 mmol/L (98-107) Carbon Dioxide Level 22 mmol/L (21-32) Anion Gap 12 (6-14) Blood Urea Nitrogen 20 mg/dL (7-20) Creatinine 1.6 mg/dL (0.6-1.0) Estimated GFR (Cockcroft-Gault) 33.5 BUN/Creatinine Ratio 13 (6-20) Glucose Level 92 mg/dL (70-99) Calcium Level 9.5 mg/dL (8.5-10.1) Total Bilirubin 0.7 mg/dL (0.2-1.0) Aspartate Amino Transf (AST/SGOT) 64 U/L (15-37) Alanine Aminotransferase (ALT/SGPT) 84 U/L (14-59) Alkaline Phosphatase 205 U/L (46-116) Total Protein 7.0 g/dL (6.4-8.2) Albumin 2.6 g/dL (3.4-5.0) Albumin/Globulin Ratio 0.6 (1.0-1.7) Images: Images CT abdomen pelvis IMPRESSION: 1. Heterogeneous enhancement of the right kidney with surrounding inflammatory fat stranding about the right kidney and along the right ureter , suspicious for pyelonephritis. There is mild fat stranding identified about the urinary bladder could be secondary to cystitis. Correlate with urine analysis. 2. Sigmoid colon diverticulosis. Assessment/Plan Assessment/Plan Acute pyelonephritis with gram-negative bacteremia COPD Hypertension History of UTIs Admit for medicine for further management ID consult Continue IV empiric antibiotics Pending urine and blood cultures DuoNebs as needed Continue home medications Lovenox for DVT prophylaxis ADA diet Full code Discussed with RN and SW Disposition pending cultures and ID evaluation Surrogate decision maker is the Justifications for Admission Other Justification ERYN GOODMAN MD May 28, 2020 08:15
[2020-05-28] MEDS: CEFEPIME HCL IV Push 2 GM VIAL. IVP SCH ×2 (08:26→21:32)
[2020-05-28] MEDS: NICOTINE 21MG PATCH. TD SCH (08:26)
[2020-05-28] MEDS ORDERED: MAG HYDROX/ALUMINUM HYD/SIMETH 30 ML ORAL.SUSP PO SCH (09:00)
--- NOTE | 2020-05-28 09:56 | NUR ---
SW following. 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 Pt has positive blood cultures - ID consulted. SW will continue to follow. Med Assist following for self pay status.
[2020-05-28] MEDS: SENNOSIDES/DOCUSATE 8.6/50MG TABLET. PO PRN ×2 (10:14→22:46)
[2020-05-28 11:05] VITALS: BP 145/88
--- NOTE | 2020-05-28 11:33 | PDOC ---
Infectious Disease Note Vital Sign Vital Signs Vital Signs Date Time Temp Pulse Resp B/P (MAP) Pulse Ox O2 Delivery O2 Flow Rate FiO2 05/28/20 11:05 99.1 85 22 145/88 (107) 97 Room Air 99.1 Labs Lab Laboratory Tests Test 05/27/20 19:11 05/27/20 19:35 Urine Collection Type Unknown Urine Color Yellow Urine Clarity Clear Urine pH 6.0 (<5.0-8.0) Urine Specific [place] 1.015 (1.000-1.030) Urine Protein 100 mg/dL (NEG-TRACE) Urine Glucose (UA) Negative mg/dL (NEG) Urine Ketones (Stick) 15 mg/dL (NEG) Urine Blood Large (NEG) Urine Nitrite Negative (NEG) Urine Bilirubin Negative (NEG) Urine Urobilinogen Dipstick 1.0 mg/dL (0.2 mg/dL) Urine Leukocyte Esterase Trace (NEG) Urine RBC 20-40 /HPF (0-2) Urine WBC 11-20 /HPF (0-4) Urine Squamous Epithelial Cells Many /LPF Urine Bacteria Few /HPF (0-FEW) Urine Mucus Slight /LPF White Blood Count 7.9 x10^3/uL (4.0-11.0) Red Blood Count 3.98 x10^6/uL (3.50-5.40) Hemoglobin 13.1 g/dL (12.0-15.5) Hematocrit 38.0 % (36.0-47.0) Mean Corpuscular Volume 95 fL (79-100) Mean Corpuscular Hemoglobin 33 pg (25-35) Mean Corpuscular Hemoglobin Concent 34 g/dL (31-37) Red Cell Distribution Width 13.7 % (11.5-14.5) Platelet Count 157 x10^3/uL (140-400) Neutrophils (%) (Auto) 82 % (31-73) Lymphocytes (%) (Auto) 6 % (24-48) Monocytes (%) (Auto) 11 % (0-9) Eosinophils (%) (Auto) 1 % (0-3) Basophils (%) (Auto) 0 % (0-3) Neutrophils # (Auto) 6.5 x10^3/uL (1.8-7.7) Lymphocytes # (Auto) 0.5 x10^3/uL (1.0-4.8) Monocytes # (Auto) 0.9 x10^3/uL (0.0-1.1) Eosinophils # (Auto) 0.1 x10^3/uL (0.0-0.7) Basophils # (Auto) 0.0 x10^3/uL (0.0-0.2) Sodium Level 136 mmol/L (136-145) Potassium Level 3.6 mmol/L (3.5-5.1) Chloride Level 102 mmol/L (98-107) Carbon Dioxide Level 22 mmol/L (21-32) Anion Gap 12 (6-14) Blood Urea Nitrogen 20 mg/dL (7-20) Creatinine 1.6 mg/dL (0.6-1.0) Estimated GFR (Cockcroft-Gault) 33.5 BUN/Creatinine Ratio 13 (6-20) Glucose Level 92 mg/dL (70-99) Calcium Level 9.5 mg/dL (8.5-10.1) Total Bilirubin 0.7 mg/dL (0.2-1.0) Aspartate Amino Transf (AST/SGOT) 64 U/L (15-37) Alanine Aminotransferase (ALT/SGPT) 84 U/L (14-59) Alkaline Phosphatase 205 U/L (46-116) Total Protein 7.0 g/dL (6.4-8.2) Albumin 2.6 g/dL (3.4-5.0) Albumin/Globulin Ratio 0.6 (1.0-1.7) Micro FINAL ID= [ESCHERICHIA COLI] Testing Performed by: [address] [address] For Inquires, the Physician may contact the Microbiology department at [phone] ESCHERICHIA COLI ANTIMICROBIAL SUSCEPTIBILITY Final Comment NEG TALAT 56 ESCHERICHIA COLI ANTIBIOTIC RESULT INTERPRETATION AMPICILLIN/SULBACTAM <=4/2 S AMIKACIN <=16 S AMPICILLIN <=8 S AMOXICILLIN/K CLAVULANATE <=8/4 S AZTREONAM <=4 S CEFTRIAXONE <=1 S CEFTAZIDIME <=1 S CEFOTAXIME <=2 S CEFOXITIN <=8 S CIPROFLOXACIN <=0.25 S CEFEPIME <=2 S CEFUROXIME <=4 S CEFTAZIDIME/AVIBACTAM <=4 S ERTAPENEM <=0.5 S NITROFURANTOIN <=32 S GENTAMICIN <=2 S LEVOFLOXACIN <=0.5 S MEROPENEM <=1 S PIPERACILLIN/TAZOBACTAM <=8 S TRIMETHOPRIM/SULFAMETHOXAZOLE <=0.5/9.5 S TETRACYCLINE <=4 S TOBRAMYCIN 4 S Objective Assessment GNR sepsis 05/26 Ecoli sens UTI 05/26 acute Pyelonephritis TORI Plan Plan of Care Had received Levoflox out patient This am dosed Cefepime with uncertain cults and risk for resistance working in a [place] - [facility] for now F/u labs and cults D/w family and nursing thank you # [phone] LOUIS CHUNG MD May 28, 2020 11:33
[2020-05-28] MEDS ORDERED: ONDANSETRON PF 4 MG/2 ML VIAL. IVP PRN (12:00)
[2020-05-28] MEDS ORDERED: ACETAMINOPHEN 325 MG TABLET. PO PRN ×2 (12:00→21:30)
[2020-05-28] MEDS ORDERED: HYDROmorphone 2 MG/ML VIAL IV PRN (12:00)
--- NOTE | 2020-05-28 15:03 | CONS ---
DATE OF CONSULTATION: 05/28/2020 INFECTIOUS DISEASE CONSULTATION NOTE LOCATION: The patient's room is 428. REQUESTING PHYSICIAN: Seth Theodore MD REASON FOR CONSULTATION: Positive blood cultures. HISTORY OF PRESENT ILLNESS: The patient is a 54-year-old female without real significant past medical history aside from some bladder infections for which she takes Azo. She denies having any significant medical problems, but she did present to [facility] on the evening of 05/26/2020 with complaints of fevers, chills, nausea, vomiting as well as abdominal pain that started the Monday prior to her presentation. She denies any trauma. She had started taking some Azo; however, it became worse. Her white blood cell count was 10.5. She did have a temperature as high as 100.1. She underwent an ultrasound that was unremarkable and had limited examination due to bowel gas. CT abdomen and pelvis with IV contrast was then obtained, showed a heterogeneous enhancement of the right kidney with surrounding inflammatory fat stranding about the right kidney along the right ureter suspicious for pyelonephritis. She was placed on levofloxacin and discharged home; however, her blood cultures turned positive 4/4 bottles. She was called and has been returned to [facility] for [facility]. She did receive a dose of Zosyn on the . She has taken 2 doses of Levaquin prior to returning and received another dose of Zosyn yesterday. I was consulted this morning, reviewed her chart, was uncertain of her past medical history or antibiotic exposure, but did notice that she works in a [employer], therefore instituted cefepime to cover for potential resistance. Currently, she is sitting upright in bed. She feels a little weak, but that is better, has not had fever since yesterday. Chills and sweats have improved. She has no sore throat or cough. No cramps or diarrhea. She still has some discomfort in her lower right area around to her right flank area. Denies any rashes. PAST MEDICAL HISTORY: Positive for COPD and hypertension. PAST SURGICAL HISTORY: Positive for left ankle surgery with a screw in place. REVIEW OF SYSTEMS: Otherwise negative except as mentioned above. ALLERGIES: No known drug allergies. 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 FAMILY HISTORY: Noncontributory for any kidney issues. CURRENT MEDICATIONS: Include Zosyn x 1, cefepime 2 g q.12 hours, nicotine patch, Tylenol, Ambien, p.r.n. pain medications. PHYSICAL EXAMINATION: VITAL SIGNS: T-max was 100.1, currently 99.1, pulse 85, respirations 22, blood pressure 145/88, satting 97% on room air. CONSTITUTIONAL: She is sitting upright in bed without signs of any complications. HEENT: Pupils equal and reactive. She has normal conjunctivae. Oral cavity, pharynx is clear. She is edentulous. NECK: Supple. Good range of motion. LUNGS: Clear to auscultation bilaterally. HEART: S1, S2. ABDOMEN: Slightly distended with positive bowel sounds. Minimal tenderness. EXTREMITIES: No clubbing, cyanosis or gross edema. SKIN: Warm to touch without signs of rash. NEUROLOGIC: She is nonfocal and appropriate. Answers questions. PSYCHIATRIC: Affect is flat. LABORATORY VALUES: White count 7.9, hemoglobin 13.1, platelets of 157, neutrophils are 82, creatinine was 1.6, AST 64, ALT 84,alkaline phosphatase 205 with a glucose of 92. Urinalysis was concerning for urinary tract infection now that she did have many squamous cells. COVID test was negative. Radiology reviewed in history of present illness. Urine culture now returned positive for E. coli that is pansensitive. Her blood cultures are still pending. IMPRESSION: 1. Gram-negative elis sepsis. 2. Escherichia coli urinary tract infection on 05/26/2020. 3. Acute pyelonephritis. 4. Acute kidney injury. RECOMMENDATIONS: Again, she received levofloxacin as an outpatient . This morning dose cefepime with uncertain cultures and risk for resistance work in a [employer]. We will continue for now. Follow up on labs and cultures as discussed with family and nursing. Thank you for allowing me to participate in the care of the patient. If you have any questions, please do not hesitate to contact me. LOUIS CHUNG MD DR: MELISSA/nader JOB#: [id number] / [id number] ILIANA
[2020-05-28 15:05] VITALS: BP 139/83
[2020-05-28] MEDS: diphenhydrAMINE HCL 25 MG CAPSULE PO PRN (17:57)
[2020-05-28 19:00] VITALS: BP 140/71
[2020-05-28] MEDS: ZOLPIDEM 5 MG TABLET. PO PRN (21:33)
[2020-05-28] MEDS: oxyCODONE IR 5 MG TABLET PO PRN (22:46)
[2020-05-28 23:00] VITALS: BP 135/86
[2020-05-29] MEDS: diphenhydrAMINE HCL 25 MG CAPSULE PO PRN ×2 (00:28→06:41)
[2020-05-29] MEDS: HYDROcodone/APAP 10/325 1 TAB TABLET PO PRN (02:24)
[2020-05-29] MEDS ORDERED: diphenhydrAMINE 50 MG/ML VIAL IVP ONE (02:30)
[2020-05-29 03:05] VITALS: BP 157/84
[2020-05-29] MEDS: oxyCODONE IR 5 MG TABLET PO PRN (05:01)
[2020-05-29 05:43] LABS: BASO % 0 % (0-3); EOS # 0.2 x10^3/uL (0.0-0.7); EOS % 2 % (0-3); HEMATOCRIT 33.8 % (36.0-47.0); HEMOGLOBIN 11.8 g/dL (12.0-15.5); LYMPH # 1.1 x10^3/uL (1.0-4.8); LYMPH % 14 % (24-48); MEAN CORPUSCULAR HEMOGLOBIN 33 pg (25-35); MEAN CORPUSCULAR HGB CONC 35 g/dL (31-37); MEAN CORPUSCULAR VOLUME 95 fL (79-100); MONO # 1.4 x10^3/uL (0.0-1.1); MONO % 18 % (0-9); NEUT # 5.3 x10^3/uL (1.8-7.7); NEUT % 66 % (31-73); PLATELET COUNT 148 x10^3/uL (140-400); RED BLOOD COUNT 3.57 x10^6/uL (3.50-5.40); RED CELL DISTRIBUTION WIDTH 14.1 % (11.5-14.5)
[2020-05-29 05:44] LABS: MAGNESIUM 2.6 mg/dL (1.8-2.4); PHOSPHORUS 3.1 mg/dL (2.6-4.7)
[2020-05-29 06:01] LABS: ALBUMIN 2.1 g/dL (3.4-5.0); ALBUMIN/GLOBULIN RATIO 0.5 (1.0-1.7); CALCIUM 8.6 mg/dL (8.5-10.1); CREATININE 1.4 mg/dL (0.6-1.0); TOTAL BILIRUBIN 0.3 mg/dL (0.2-1.0); TOTAL PROTEIN 6.2 g/dL (6.4-8.2)
[2020-05-29 07:05] VITALS: BP 145/84
[2020-05-29] MEDS ORDERED: hydrOXYzine 25 MG TABLET PO PRN (09:00)
[2020-05-29] MEDS: CEFEPIME HCL IV Push 2 GM VIAL. IVP SCH (09:18)
[2020-05-29] MEDS: NICOTINE 21MG PATCH. TD SCH (09:18)
--- NOTE | 2020-05-29 09:55 | NUR ---
SW following. Discussed with RN,pt from home, room air, regular diet. Dr. Bennett waiting on confirmation from ID to determine abx at discharge. If oral abx, pt will discharge home today with self care. RN advised no SW needs at this time, SW will continue to follow should any needs arise.
--- NOTE | 2020-05-29 10:53 | PDOC ---
Infectious Disease Note Subjective Subjective C/o itch and feels better Fever times one Eating ok. pain is better ROS ROS o/w neg Vital Sign Vital Signs Vital Signs Date Time Temp Pulse Resp B/P (MAP) Pulse Ox O2 Delivery O2 Flow Rate FiO2 05/29/20 07:05 101.3 87 19 145/84 (104) 95 Room Air 101.3 Physical Exam PHYSICAL EXAM CONSTITUTIONAL: She is sitting upright in bed without signs of any complications. Looks well HEENT: Pupils equal and reactive. She has normal conjunctivae. Oral cavity, pharynx is clear. She is edentulous. NECK: Supple. Good range of motion. LUNGS: Clear to auscultation bilaterally. HEART: S1, S2. ABDOMEN: Slightly distended with positive bowel sounds. Minimal tenderness. EXTREMITIES: No clubbing, cyanosis or gross edema. SKIN: Warm to touch without signs of rash. NEUROLOGIC: She is nonfocal and appropriate. Answers questions. PSYCHIATRIC: Affect is flat. Labs Lab Laboratory Tests Test 05/29/20 04:25 White Blood Count 8.0 x10^3/uL (4.0-11.0) Red Blood Count 3.57 x10^6/uL (3.50-5.40) Hemoglobin 11.8 g/dL (12.0-15.5) Hematocrit 33.8 % (36.0-47.0) Mean Corpuscular Volume 95 fL (79-100) Mean Corpuscular Hemoglobin 33 pg (25-35) Mean Corpuscular Hemoglobin Concent 35 g/dL (31-37) Red Cell Distribution Width 14.1 % (11.5-14.5) Platelet Count 148 x10^3/uL (140-400) Neutrophils (%) (Auto) 66 % (31-73) Lymphocytes (%) (Auto) 14 % (24-48) Monocytes (%) (Auto) 18 % (0-9) Eosinophils (%) (Auto) 2 % (0-3) Basophils (%) (Auto) 0 % (0-3) Neutrophils # (Auto) 5.3 x10^3/uL (1.8-7.7) Lymphocytes # (Auto) 1.1 x10^3/uL (1.0-4.8) Monocytes # (Auto) 1.4 x10^3/uL (0.0-1.1) Eosinophils # (Auto) 0.2 x10^3/uL (0.0-0.7) Basophils # (Auto) 0.0 x10^3/uL (0.0-0.2) Sodium Level 136 mmol/L (136-145) Potassium Level 4.0 mmol/L (3.5-5.1) Chloride Level 104 mmol/L (98-107) Carbon Dioxide Level 24 mmol/L (21-32) Anion Gap 8 (6-14) Blood Urea Nitrogen 25 mg/dL (7-20) Creatinine 1.4 mg/dL (0.6-1.0) Estimated GFR (Cockcroft-Gault) 39.0 BUN/Creatinine Ratio 18 (6-20) Glucose Level 109 mg/dL (70-99) Calcium Level 8.6 mg/dL (8.5-10.1) Phosphorus Level 3.1 mg/dL (2.6-4.7) Magnesium Level 2.6 mg/dL (1.8-2.4) Total Bilirubin 0.3 mg/dL (0.2-1.0) Aspartate Amino Transf (AST/SGOT) 39 U/L (15-37) Alanine Aminotransferase (ALT/SGPT) 54 U/L (14-59) Alkaline Phosphatase 182 U/L (46-116) Total Protein 6.2 g/dL (6.4-8.2) Albumin 2.1 g/dL (3.4-5.0) Albumin/Globulin Ratio 0.5 (1.0-1.7) Micro BLOOD CULTURE LC Final Final GRAM NEGATIVE RODS FINAL ID= [ESCHERICHIA COLI] ESCHERICHIA COLI ANTIMICROBIAL SUSCEPTIBILITY Final Comment NEG TALAT 56 ESCHERICHIA COLI ANTIBIOTIC RESULT INTERPRETATION AMPICILLIN/SULBACTAM <=4/2 S AMIKACIN <=16 S AMPICILLIN <=8 S AMOXICILLIN/K CLAVULANATE <=8/4 S AZTREONAM <=4 S CEFTRIAXONE <=1 S CEFTAZIDIME <=1 S CEFOTAXIME <=2 S CEFOXITIN <=8 S CIPROFLOXACIN <=0.25 S CEFEPIME <=2 S CEFUROXIME <=4 S CEFTAZIDIME/AVIBACTAM <=4 S ERTAPENEM <=0.5 S GENTAMICIN <=2 S LEVOFLOXACIN <=0.5 S MEROPENEM <=1 S PIPERACILLIN/TAZOBACTAM <=8 S TRIMETHOPRIM/SULFAMETHOXAZOLE <=0.5/9.5 S TETRACYCLINE <=4 S TOBRAMYCIN <=2 S FINAL ID= [ESCHERICHIA COLI] Testing Performed by: [facility] [address] [place] [address] For Inquires, the Physician may contact the Microbiology department at [phone] ESCHERICHIA COLI ANTIMICROBIAL SUSCEPTIBILITY Final Comment NEG TALAT 56 ESCHERICHIA COLI ANTIBIOTIC RESULT INTERPRETATION AMPICILLIN/SULBACTAM <=4/2 S AMIKACIN <=16 S AMPICILLIN <=8 S AMOXICILLIN/K CLAVULANATE <=8/4 S AZTREONAM <=4 S CEFTRIAXONE <=1 S CEFTAZIDIME <=1 S CEFOTAXIME <=2 S CEFOXITIN <=8 S CIPROFLOXACIN <=0.25 S CEFEPIME <=2 S CEFUROXIME <=4 S CEFTAZIDIME/AVIBACTAM <=4 S ERTAPENEM <=0.5 S NITROFURANTOIN <=32 S GENTAMICIN <=2 S LEVOFLOXACIN <=0.5 S MEROPENEM <=1 S PIPERACILLIN/TAZOBACTAM <=8 S TRIMETHOPRIM/SULFAMETHOXAZOLE <=0.5/9.5 S TETRACYCLINE <=4 S TOBRAMYCIN 4 S Objective Assessment Fever Ecoli sepsis 05/26 Ecoli sens UTI 05/26 acute Pyelonephritis TORI - better Transamintis - better itch ? med Plan Plan of Care D/c Cefepime Wants to take po Levofloxacin - I discussed the risks with Quinolones including tendonitis and rupture and risk of Aortic aneurysm. She understands the risks and does not want IV Itch per primary F/u labs and cults F/u temp D/w family and nursing LOUIS CHUNG MD May 29, 2020 10:53
--- NOTE | 2020-05-29 11:02 | PDOC ---
[facility] PROGRESS NOTE Date of Service DOS: DATE: 05/29/20 TIME: 11:01 Chief Complaint Chief Complaint Acute pyelonephritis with gram-negative bacteremia COPD Hypertension History of UTIs Total body pruritus Severe protein malnutrition Admit for medicine for further management Start IV hydroxyzine as needed for pruritus ID consult Switch IV cefepime to IV Rocephin Pending urine and blood cultures DuoNebs as needed Continue home medications Lovenox for DVT prophylaxis ADA diet Full code Discussed with RN and SW Disposition pending cultures and ID evaluation Surrogate decision maker is the History of Present Illness History of Present Illness 54-year-old female with past medical history of COPD, hypertension, recurrent UTIs in the past who returns to the ED after being treated with Levaquin for a UTI. She returns peak and her blood cultures did show gram-negative rods. Patient states that she had fevers and chills with a T-max of 103.4. Patient continues to have moderate right flank pain that is causing her discomfort that radiates to her suprapubic area. Positive CVA tenderness. Denies shortness of breath, chest pain, abdominal pain, bloody stools, diarrhea, or dizziness. 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 She does not do very well with scheduling or planning her voiding schedules. 05/29/2020 No acute events overnight. Fever of 101.3 overnight. Patient does complain of itchiness and pruritus that Benadryl did not help her. Patient seen and examined bedside with no acute lesions or rashes noted. No hives or urticaria or lip swelling. Patient's chart, labs, images were reviewed and discussed with RN Vitals/I&O Vitals/I&O: Vital Signs Date Time Temp Pulse Resp B/P (MAP) Pulse Ox O2 Delivery O2 Flow Rate FiO2 05/29/20 07:05 101.3 87 19 145/84 (104) 95 Room Air 101.3 Physical Exam Physical Exam: CONSTITUTIONAL: She is sitting upright in bed without signs of any complications. HEENT: Pupils equal and reactive. She has normal conjunctivae. Oral cavity, pharynx is clear. She is edentulous. NECK: Supple. Good range of motion. LUNGS: Clear to auscultation bilaterally. HEART: S1, S2. ABDOMEN: Slightly distended with positive bowel sounds. Minimal tenderness. EXTREMITIES: No clubbing, cyanosis or gross edema. SKIN: Warm to touch without signs of rash. NEUROLOGIC: She is nonfocal and appropriate. Answers questions. PSYCHIATRIC: Affect is flat. Labs Labs: Laboratory Tests Test 05/29/20 04:25 White Blood Count 8.0 x10^3/uL (4.0-11.0) Red Blood Count 3.57 x10^6/uL (3.50-5.40) Hemoglobin 11.8 g/dL (12.0-15.5) Hematocrit 33.8 % (36.0-47.0) Mean Corpuscular Volume 95 fL (79-100) Mean Corpuscular Hemoglobin 33 pg (25-35) Mean Corpuscular Hemoglobin Concent 35 g/dL (31-37) Red Cell Distribution Width 14.1 % (11.5-14.5) Platelet Count 148 x10^3/uL (140-400) Neutrophils (%) (Auto) 66 % (31-73) Lymphocytes (%) (Auto) 14 % (24-48) Monocytes (%) (Auto) 18 % (0-9) Eosinophils (%) (Auto) 2 % (0-3) Basophils (%) (Auto) 0 % (0-3) Neutrophils # (Auto) 5.3 x10^3/uL (1.8-7.7) Lymphocytes # (Auto) 1.1 x10^3/uL (1.0-4.8) Monocytes # (Auto) 1.4 x10^3/uL (0.0-1.1) Eosinophils # (Auto) 0.2 x10^3/uL (0.0-0.7) Basophils # (Auto) 0.0 x10^3/uL (0.0-0.2) Sodium Level 136 mmol/L (136-145) Potassium Level 4.0 mmol/L (3.5-5.1) Chloride Level 104 mmol/L (98-107) Carbon Dioxide Level 24 mmol/L (21-32) Anion Gap 8 (6-14) Blood Urea Nitrogen 25 mg/dL (7-20) Creatinine 1.4 mg/dL (0.6-1.0) Estimated GFR (Cockcroft-Gault) 39.0 BUN/Creatinine Ratio 18 (6-20) Glucose Level 109 mg/dL (70-99) Calcium Level 8.6 mg/dL (8.5-10.1) Phosphorus Level 3.1 mg/dL (2.6-4.7) Magnesium Level 2.6 mg/dL (1.8-2.4) Total Bilirubin 0.3 mg/dL (0.2-1.0) Aspartate Amino Transf (AST/SGOT) 39 U/L (15-37) Alanine Aminotransferase (ALT/SGPT) 54 U/L (14-59) Alkaline Phosphatase 182 U/L (46-116) Total Protein 6.2 g/dL (6.4-8.2) Albumin 2.1 g/dL (3.4-5.0) Albumin/Globulin Ratio 0.5 (1.0-1.7) Assessment and Plan Assessmemt and Plan Problems Medical Problems: (1) Fever Status: Acute (2) Flank pain Status: Acute (3) Positive blood culture Status: Acute (4) Pyelonephritis Status: Acute Comment Review of Relevant I have reviewed the following items lanre (where applicable) has been applied. Medications: Current Medications Medications (Trade) Dose Ordered Sig/Nav Route PRN Reason Start Time Stop Time Status Last Admin Dose Admin Acetaminophen (Tylenol) 650 mg PRN Q4HRS PRN PO TEMP OVER 100.4F OR MILD PAIN 05/28/20 12:00 05/29/20 09:17 Diphenhydramine HCl (Benadryl) 25 mg PRN Q6HRS PRN PO ITCHING 05/28/20 17:45 05/29/20 06:41 Oxycodone HCl (Roxicodone) 10 mg PRN Q6HRS PRN PO SEVERE PAIN 7-10 05/28/20 21:30 05/29/20 05:01 Acetaminophen (Tylenol) 650 mg PRN Q6HRS PRN PO MILD PAIN 1-3 05/28/20 21:30 05/29/20 02:05 DC 05/28/20 21:33 Diphenhydramine HCl (Benadryl) 25 mg 1X ONCE IVP 05/29/20 02:30 05/29/20 02:31 DC 05/29/20 02:10 Hydroxyzine HCl (Atarax) 25 mg PRN Q6HRS PRN PO ITCHING 05/29/20 09:00 05/29/20 09:17 Justifications for Admission Other Justification ERYN GOODMAN MD May 29, 2020 11:02
[2020-05-29 11:05] VITALS: BP 135/65
[2020-05-29] MEDS ORDERED: LORazepam 0.5 MG TABLET PO PRN (11:15)
[2020-05-29] MEDS ORDERED: LEVO750T5 PO (12:51)
[2020-05-29] MEDS ORDERED: HYDR25TA PO (12:51)
--- NOTE | 2020-05-29 12:52 | DISCH ---
DISCHARGE INSTRUCTIONS Condition on Discharge Condition on Discharge: Stable Activity After Discharge Activity Instructions for Disc: No restrictions Driving Instructions after Dis: Do not drive today Follow-Up Follow up with: PCP within 1 week of discharge ERYN GOODMAN MD May 29, 2020 12:52
--- NOTE | 2020-05-29 13:19 | NUR ---
Discharge Note: RENETTA VANESSA [facility] Discharge instructions and discharge home medications reviewed with patient and a copy given. All questions have been answered and understanding verbalized. The following instructions and handouts were given: Prescriptions for levaquin, hydroxyzine and oxycodone 5mg Q6hr prn Take home meds as directed Watch out for fever and chills, nausea, vomiting, severe weakness. Follow up with PCP in a week. patient claims she goes to a clinic. Discontinued lines and drains: peripheral IV intact, patient tolerated removal, no complications noted Patient discharged to home with self care, ambulatory, accompanied by family member at 1320.
[2020-05-29] MEDS ORDERED: cefTRIAXone IV Push 2 GM VIAL. IVP SCH (21:00)
--- NOTE | 2020-05-30 16:55 | PDOC3 ---
[facility]-Discharge Summary Date of Admission: Date of Admission: May 28, 2020 Date of Discharge: Date of Discharge: May 29, 2020 Admission Diagnosis: Admitting Diagnosis: Acute pyelonephritis with gram-negative bacteremia COPD Hypertension History of UTIs Discharge Diagnosis: Discharge Diagnosis: Acute pyelonephritis with gram-negative bacteremia COPD Hypertension History of UTIs Consults: Consults: Infectious Disease Hospital Course: Hospital Course: 54-year-old female with past medical history of COPD, hypertension, recurrent UTIs in the past who returns to the ED after being treated with Levaquin for a UTI. She returns peak and her blood cultures did show gram-negative rods. Patient states that she had fevers and chills with a T-max of 103.4. Patient continues to have moderate right flank pain that is causing her discomfort that radiates to her suprapubic area. Positive CVA tenderness. Denies shortness of breath, chest pain, abdominal pain, bloody stools, diarrhea, or dizziness. 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 She does not do very well with scheduling or planning her voiding schedules. Patient was admitted for further care and IV abx. Urine culture S/S returned and we were able to discharge her with PO Levaquin. Patient will complete her course of Abx as an outpatient. The rest of her hospital course was uneventful. Disposition: Disposition/Orders: D/C to Home Activity: Activity: Resume previous activity Diet: Diet: Regular Medications: Home Meds Active Scripts Hydroxyzine Hcl (HYDROXYZINE HCL) 25 Mg Tablet, 25 MG PO PRN Q6HRS PRN for [place] for 14 Days, #30 TAB Prov:ERYN GOODMAN MD 05/29/20 Levofloxacin (LEVOFLOXACIN) 750 Mg Tablet, 1 TAB PO DAILY for UTI for 7 Days, #7 TAB Prov:ERYN GOODMAN MD 05/29/20 Reported Medications Nicotine (NICODERM CQ 21mg) 1 Each Patch.td24, 1 PATCH TP DAILY for smoking ceseation, #28 PATCH 1 Refill 05/27/20 Zolpidem Tartrate (AMBIEN) 5 Mg Tablet, 5 MG PO PRN QHS PRN for INSOMNIA, TAB 0 Refills 05/27/20 Discontinued Reported Medications Mag Hydrox/Aluminum Hyd/Simeth (Mylanta Maximum Strength Liq) 355 Ml Oral.susp, 355 ML PO BID for gas/indigestion, MISC 05/27/20 Hydrocodone/Acetaminophen (Hydrocodone-Acetamin 10-325 mg) 1 Each Tablet, 1 EACH PO Q6HRS for pain, TAB 05/27/20 Scheduled Levofloxacin (Levofloxacin), 1 TAB PO DAILY Nicotine (NICODERM CQ 21mg), 1 PATCH TP DAILY, (Reported) Scheduled PRN Hydroxyzine Hcl (Hydroxyzine Hcl), 25 MG PO PRN Q6HRS PRN for ITCHING Zolpidem Tartrate (Ambien), 5 MG PO PRN QHS PRN for INSOMNIA, (Reported) Discontinued Medications Hydrocodone/Acetaminophen (Hydrocodone-Acetamin 10-325 mg), 1 EACH PO Q6HRS, (Reported) Mag Hydrox/Aluminum Hyd/Simeth (Mylanta Maximum Strength Liq), 355 ML PO BID, (Reported) Total Time: Total Time: Total time spent was 24 minutes in preparing scripts, discharge planning with SW and RN, and preparing this discharge summary. Justicifation of Admission Dx: Justifications for Admission: Justification of Admission Dx: N/A ERYN GOODMAN MD May 30, 2020 16:55
== END 2020-05-29 13:20 | disposition home or self-care (01) | DRG 871 ==
LOC: ER 18:59 → 4 NORTH 20:26 → OBSVTOIN 05-29 08:20
PROVIDERS: ADMIT Family Medicine; ATTEND Family Medicine
DX: A41.51 Sepsis due to Escherichia coli [E. coli] (principal); E43 Unspecified severe protein-calorie malnutrition; N10 Acute pyelonephritis; N17.9 Acute kidney failure, unspecified; F17.200 Nicotine dependence, unspecified, uncomplicated; I10 Essential (primary) hypertension; J44.9 Chronic obstructive pulmonary disease, unspecified; K57.30 Diverticulosis of large intestine without perforation or abscess without bleeding; L29.9 Pruritus, unspecified; Z68.27 Body mass index [BMI] 27.0-27.9, adult
CPT/HCPCS: 36415; 80053; 81001; 83735; 84100; 85025; 87077; 87086; 87186; 96365; 96375; 99285; 99406; G0378; G0379; J0692; J1200; J2270; J2543; Q0163

== ENCOUNTER 2020-09-02 10:16 | Emergency (ER) | payer SELFPAY ==
[~2020-09-02] VITALS: Ht 170.2 cm; Wt 69.0 kg
[~2020-09-02 10:16] MED LIST changes: +HYDR-2767 PO; +HYDR25TA PO; +MAG-115 PO; +NICO1PAT21 TP; +ZOLP5TAB PO
--- NOTE | 2020-09-02 11:09 | PHYS DOC ---
Past Medical History Past Medical History: COPD, Hypertension (GRIFFIN HUERTA APRN) Past Surgical History: Other Additional Past Surgical Histo: Left ankle (GRIFFIN HUERTA APRN) Smoking Status: Current Every Day Smoker Alcohol Use: None Drug Use: Marijuana (GRIFFIN HUERTA APRN) General Adult EDM: Chief Complaint: FEVER HPI: HPI: Patient is a 54 year old female with history of COPD, current smoker hypertension who presents to the ED today complaining of fevers and chills that began yesterday. She also reports an episode of right flank pain that occurred yesterday, no pain today. She also states she has history of kidney infections. Denies any nausea, vomiting, hematuria. (GRIFFIN HUERTA APRN) Review of Systems: Review of Systems: Constitutional: Reports fevers, chills Eyes: Denies change in visual acuity. [] HENT: Denies nasal congestion or sore throat. [] Respiratory: Denies cough or shortness of breath. [] Cardiovascular: Denies chest pain or edema. [] GI: Denies abdominal pain, nausea, vomiting, bloody stools or diarrhea. [] : Reports right flank pain. Denies dysuria. [] Musculoskeletal: Denies back pain or joint pain. [] Integument: Denies rash. [] Neurologic: Denies headache, focal weakness or sensory changes. [] Psychiatric: Denies depression or anxiety. [] (GRIFFIN HUERTA APRN) Heart Score: Risk Factors: Risk Factors: DM, Current or recent (<one month) smoker, HTN, HLP, family history of CAD, obesity. Risk Scores: Score 0 - 3: 2.5% MACE over next 6 weeks - Discharge Home Score 4 - 6: 20.3% MACE over next 6 weeks - Admit for Clinical Observation Score 7 - 10: 72.7% MACE over next 6 weeks - Early Invasive Strategies (GRIFFIN HUERTA APRN) Allergies: Allergies: Allergies Coded Allergies Type Severity Reaction Last Updated Verified No Known Drug Allergies 06/15/19 No (GRIFFIN HUERTA APRN) Physical Exam: PE: Constitutional: Well developed, well nourished, no acute distress, non-toxic appearance. [] HENT: Normocephalic, atraumatic, bilateral external ears normal, oropharynx moist, no oral exudates, nose normal. [] Eyes: PERRLA, EOMI, conjunctiva normal, no discharge. [] Neck: Normal range of motion, no tenderness, supple, no stridor. [] Cardiovascular:Heart rate regular rhythm, no murmur [] Lungs & Thorax: Bilateral breath sounds clear to auscultation [] Abdomen: Bowel sounds normal, soft, no tenderness, no masses, no pulsatile masses. [] Skin: Warm, dry, no erythema, no rash. [] Back: No tenderness, no CVA tenderness. [] Extremities: No tenderness, no cyanosis, no clubbing, ROM intact, no edema. [] Neurologic: Alert and oriented X 3, normal motor function, normal sensory function, no focal deficits noted. [] Psychologic: Affect normal, judgement normal, mood normal. [] (GRIFFIN HUERTA APRN) EKG: EKG: [] (GRIFFIN HUERTA APRN) Radiology/Procedures: Radiology/Procedures: [] (GRIFIFN HUERTA APRN) Course & Med Decision Making: Course & Med Decision Making Pertinent Labs and Imaging studies reviewed. (See chart for details) This is a 54-year-old female patient presenting to the ED today complaining of fevers and chills as well as right flank pain, symptoms began yesterday. History of kidney infections. CBC with a WBC of 14.8, CMP with no acute findings, urine analysis noted for small amount of leukocytes. Patient was given Rocephin in the ED. Discharged on Cipro. Follow-up with primary care doctor in 1 to 2 weeks (GRIFFIN HUERTA APRN) Oz Disclaimer: Oz Disclaimer: This electronic medical record was generated, in whole or in part, using a voice recognition dictation system. (GRIFFIN HUERTA APRN) Departure Departure Impression: Primary Impression: Acute pyelonephritis Additional Impression: Fever Qualified Codes: R50.9 - Fever, unspecified Disposition: 01 DC HOME SELF CARE/HOMELESS Condition: STABLE Referrals: NO PCP (PCP) follow up in 1-2 weeks with your doctor Patient Instructions: Pyelonephritis, Adult Additional Instructions: You have a kidney infection. Take the prescribed antibiotics until completed. Follow-up with your own doctor in 1 to 2 weeks. Push fluids. Scripts Hydrocodone/Apap 5-325 (NORCO 5-325 TABLET) 1 Each Tablet 1 TAB PO Q6-8HRS PRN for PAIN, #14 TAB Prov: SUSANAlexGRIFFIN FORREST 09/02/20 Ondansetron (ONDANSETRON ODT) 4 Mg Tab.rapdis 1 TAB PO PRN Q6-8HRS, #16 TAB Prov: SUSANAlexGRIFFIN FORREST 09/02/20 Ciprofloxacin Hcl (CIPRO) 500 Mg Tablet 1 TAB PO BID for 7 Days, #14 TAB 0 Refills Prov: GRIFFIN HUERTA APRN 09/02/20 Attending Signature Attending Signature I have reviewed the PA/WIRE BRUSHER's note and plan of care. I was available for consultation as needed during the patient's visit in the emergency department. I agree with the clinical impression, plan, and disposition. (JEFFRY MARQUEZ DO) GRIFFIN HUERTA APRN Sep 02, 2020 11:09 JEFFRY MARQUEZ DO Sep 02, 2020 18:52
[2020-09-02] MEDS ORDERED: IV NORMAL SALINE 1000ML BAG 1,000 ML IV ONE (11:15)
[2020-09-02 11:28] LABS: BILIRUBIN,URINE NEGATIVE (NEG); CLARITY,URINE CLEAR; COLOR,URINE YELLOW; NITRITE,URINE NEGATIVE (NEG); PROTEIN,URINE NEGATIVE (NEG-TRACE); UROBILINOGEN,URINE 0.2 mg/dL (0.2 mg/dL)
[2020-09-02 11:36] LABS: AMPHETAMINE/METHAMPHETAMINE NEG (NEG); BARBITURATES NEG (NEG); BENZODIAZEPINES NEG (NEG); CANNABINOIDS NEG (NEG); COCAINE NEG (NEG); METHADONE NEG (NEG); OPIATES NEG (NEG); PHENCYCLIDINE NEG (NEG)
[2020-09-02 11:42] LABS: BASO % 0 % (0-3); EOS % 0 % (0-3); HEMATOCRIT 38.6 % (36.0-47.0); HEMOGLOBIN 13.2 g/dL (12.0-15.5); LYMPH # 0.6 x10^3/uL (1.0-4.8); LYMPH % 4 % (24-48); MEAN CORPUSCULAR HEMOGLOBIN 32 pg (25-35); MEAN CORPUSCULAR HGB CONC 34 g/dL (31-37); MEAN CORPUSCULAR VOLUME 94 fL (79-100); MONO # 1.3 x10^3/uL (0.0-1.1); MONO % 9 % (0-9); NEUT # 12.8 x10^3/uL (1.8-7.7); NEUT % 87 % (31-73); PLATELET COUNT 240 x10^3/uL (140-400); RED BLOOD COUNT 4.09 x10^6/uL (3.50-5.40); RED CELL DISTRIBUTION WIDTH 13.2 % (11.5-14.5); WHITE BLOOD COUNT 14.8 x10^3/uL (4.0-11.0)
[2020-09-02 11:45] LABS: BACTERIA,URINE 0 /HPF (0-FEW); RBC,URINE OCC /HPF (0-2)
[2020-09-02 11:52] LABS: CALCIUM 9.5 mg/dL (8.5-10.1); CREATININE 0.9 mg/dL (0.6-1.0)
[2020-09-02 11:58] LABS: ALBUMIN 3.9 g/dL (3.4-5.0); ALBUMIN/GLOBULIN RATIO 1.1 (1.0-1.7); TOTAL BILIRUBIN 0.5 mg/dL (0.2-1.0); TOTAL PROTEIN 7.6 g/dL (6.4-8.2)
[2020-09-02 12:00] VITALS: BP 140/69
[2020-09-02] MEDS ORDERED: cefTRIAXone IV Push 1 GM VIAL. IVP ONE (12:15)
[2020-09-02] MEDS ORDERED: ONDA4TAB12 PO (12:45)
[2020-09-02] MEDS ORDERED: KETOROLAC 30 MG/ML VIAL. IVP ONE (12:45)
[2020-09-02] MEDS ORDERED: HYDR-3164 PO (12:45)
[2020-09-02] MEDS ORDERED: CIPR500T94 PO (12:45)
== END 2020-09-02 13:32 | disposition home or self-care (01) ==
LOC: ER 10:16
DX: N10 Acute pyelonephritis (principal); J44.9 Chronic obstructive pulmonary disease, unspecified; I10 Essential (primary) hypertension; F17.200 Nicotine dependence, unspecified, uncomplicated
CPT/HCPCS: 36415; 80053; 80307; 81001; 85025; 87086; 96361; 96374; 96375; 99284; G0480; J0696; J1885; J7030